=== PATIENT | male | born 1950 | race Caucasian/White ===

== ENCOUNTER 2020-07-23 19:44 | Observation (INO) ==
[2020-07-23 20:18] LABS: Basophils # 0.1 10*3/uL (0.0-0.2); Basophils % 0.6 % (0.0-0.8); Eosinophils # 0.3 10*3/uL (0.0-0.87); Eosinophils % 2.4 % (0.00-10.9); Hematocrit 48.4 VOL% (42.0-52.0); Hemoglobin 15.7 GM/DL (14.0-18.0); Immature Granulocytes % 0.5 %; Immature Granulocytes Absolute 0.05 #; Lymphocytes % 36.2 % (21.2-54.2); Mean Corpuscular HGB Conc 32.4 GM/DL (32-36); Mean Corpuscular Volume 98.2 FL (87-102); Mean Platelet Volume 9.1 FL (9.6-12.0); Monocytes % 7.4 % (1.7-12.7); Neutrophils % 52.9 % (38.7-73.9); Platelet Count 231 T/CUMM (130-400); Red Blood Count 4.93 MC/CUMM (3.8-5.5); Red Cell Distribution Width 13.9 % (9.3-17.3); White Blood Count 11.1 T/CUMM (4-12)
[2020-07-23] MEDS ORDERED: ONDANSETRON 4 MG/2 ML VIAL IV STA (20:26)
[2020-07-23] MEDS ORDERED: NITROGLYCERIN 2% OINT 1 INCH/GM PACK TOP STA (20:26)
[2020-07-23] MEDS ORDERED: ALUM/MAG/SIMETH/LIDO VISC 1:1 30 ML BOTTLE PO STA (20:26)
[2020-07-23] MEDS ORDERED: MORPHINE 4 MG/1 ML VIAL IV STA (20:26)
[2020-07-23] MEDS ORDERED: ASPIRIN 325 MG TABLET PO STA (20:26)
[2020-07-23 20:35] LABS: Alanine Aminotransferase 16 U/L (16-61); Albumin 3.6 G/DL (3.4-5.0); Alkaline Phosphatase 77 U/L (45-117); Aspartate Amino Transferase 15 U/L (0-37); Bilirubin,Total < 0.39 MG/DL (0.2-1.0); Blood Urea Nitrogen 14 MG/DL (7-18); Calcium 8.9 MG/DL (8.5-10.1); Carbon Dioxide 26 MMOL/L (21-32); Estimated Glom Filtration Rate 65 ML/MIN; Glucose 104 MG/DL (74-106); Osmolality,Calculated 281.3 MOS/KG (273-304); Potassium 4.2 MMOL/L (3.5-5.1); Sodium 141 MMOL/L (136-145); Total Protein 6.4 G/DL (6.4-8.3)
[2020-07-23] MEDS ORDERED: ENOXAPARIN 100 MG/ML SYRINGE SUBCUT STA (21:24)
[2020-07-23] MEDS ORDERED: ONDANSETRON 4 MG/2 ML VIAL IV PRN (21:59)
[2020-07-23] MEDS ORDERED: GLUCAGON 1 MG VIAL IM PRN (21:59)
[2020-07-23] MEDS ORDERED: DEXTROSE 50% 25 GM/50 ML VIAL IV PRN (21:59)
[2020-07-23] MEDS ORDERED: NITROGLYCERIN SL 0.4 MG TABLET SL PRN (21:59)
[2020-07-23 22:38] LABS: Burr Cells Few; Platelet Estimate Decreased
[2020-07-24] MEDS: FAMOTIDINE 20 MG TABLET PO SCH ×2 (03:39→08:50)
[2020-07-24 07:47] LABS: Risk Ratio 2.79; VLDL CHOLESTEROL 13.2 MG/DL
[2020-07-24 07:49] LABS: Troponin I < 0.015 NG/ML (0.00-0.045)
[2020-07-24] MEDS ORDERED: CLOPIDOGREL 75 MG TABLET PO SCH (09:00)
[2020-07-24] MEDS ORDERED: METOPROLOL SUCCINATE XL 25 MG TABLET PO SCH (09:00)
[2020-07-24 12:10] VITALS: BP 111/57
[2020-07-24] MEDS ORDERED: ATORVASTATIN 20 MG TABLET PO SCH (21:00)
== END 2020-07-24 13:30 | disposition home or self-care (01) ==
LOC: N.EDINP 19:44 → N.ED 19:44 → N.TELEN 22:38
PROVIDERS: ADMIT Internal Medicine; ATTEND Internal Medicine